=== PATIENT | male | born 1975 | race Caucasian/White ===

== ENCOUNTER 2017-09-09 14:09 | Emergency (ER) | payer OTHER ==
[~2017-09-09] VITALS: Ht 185.4 cm; Wt 96.8 kg
[~2017-09-09 14:09] MED LIST: CYCL10TA6 PO; ESCI10TA17 PO; PRLSR20 PO; PRN10125 PO
[2017-09-09 14:11] VITALS: TEMP 37; Ht 185.4 cm; Wt 96.8 kg
[2017-09-09 14:14] VITALS: O2SAT 94
[2017-09-09] MEDS ORDERED: ASPIRIN 81 MG CHEW PO STA (14:39)
[2017-09-09 14:44] LABS: BASO % 0.3 %; BASO ABS # 0.02 K/uL (0-0.2); EOS % 2.7 %; EOS ABS # 0.16 K/uL (0-0.5); HEMATOCRIT 42.3 % (42-52); HEMOGLOBIN 15.1 g/dL (14.0-18.0); IG# 0.01 K/uL (0.00-0.02); LYMPH % 20.5 %; MEAN CELL VOLUME 92.4 fL (80-100); MEAN CORPUSCULAR HGB CONC 35.7 g/dl (32-36); MEAN PLATELET VOLUME 11.4 fL (7.4-10.4); MONO ABS # 0.35 K/uL (0.11-0.59); NEUT % 70.3 %; NEUT ABS # 4.12 K/uL (1.4-6.5); PLATELET COUNT 195 K/uL (130-400); RED CELL DISTRIBUTION WIDTH CV 11.6 % (11.5-14.5); RED CELL DISTRIBUTION WIDTH SD 39.3 fL (36.4-46.3); WHITE BLOOD COUNT 5.86 K/uL (4.8-10.8)
[2017-09-09 14:54] LABS: PTT PATIENT 25.8 SECONDS (21.0-31.0)
--- NOTE | 2017-09-09 15:05 | DIAGNOSTIC IMAGING REPORT ---
CHEST ONE VIEW PORTABLE CLINICAL HISTORY: 41 years-old Male presenting with CHEST PAIN. TECHNIQUE: Portable upright AP view of the chest was obtained. COMPARISON: 07/02/2013. FINDINGS: Cardiomediastinal silhouette normal. Lungs and pleural spaces clear. Osseous structures normal. Upper abdomen normal. IMPRESSION: 1. No acute cardiopulmonary disease. Electronically signed by: Sukumar Valerio M.D. 09/09/2017 3:04 PM Dictated Date/Time: 09/09/2017 3:03 PM
[2017-09-09 15:15] LABS: ALT/SGPT 25 U/L (12-78); AST/SGOT 18 U/L (15-37); BLOOD UREA NITROGEN 16 mg/dl (7-18); CALCIUM 8.5 mg/dl (8.5-10.1); CARBON DIOXIDE 28 mmol/L (21-32); CREATININE 1.05 mg/dl (0.60-1.40); GLUCOSE 168 mg/dl (70-99); LIPASE 150 U/L (73-393); POTASSIUM 3.6 mmol/L (3.5-5.1); SODIUM 135 mmol/L (136-145)
[2017-09-09] MEDS ORDERED: LSN/10125 PO (15:17)
[2017-09-09 15:20] LABS: ALKALINE PHOSPHATASE 74 U/L (45-117); CKMB 1.1 ng/ml (0.5-3.6); TOTAL PROTEIN 7.2 gm/dl (6.4-8.2)
--- NOTE | 2017-09-09 15:49 | EMERGENCY ROOM VISIT NOTE ---
History Report prepared by George: Denise Latif Under the Supervision of: Dr. Tian Jauregui D.O. First contact with patient: 14:19 Chief Complaint: CHEST PAIN Stated Complaint: CHEST PAIN Nursing Triage Summary: pt reports chest pain across chest, started around 1330. lasted about 10 minutes and then slowly went away. denies pain currently. at the time had Lightheadedness, sweating, SOB. pt thought it was indigestion. Hx anxiety and HTN. 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 The patient states that his discomfort felt like a chest tightness that radiated from the middle of his chest to the top of his arms. He denies any shortness of breath, leg pain or swelling, abdominal pain, nausea, or vomiting. The patient took 2 Tylenol tabs, which helped relieve his symptoms. He notes that he felt normal when he woke up this morning. The patient reports that he has recently lost 15 pounds intentionally. Source of History: patient Onset: around 1330 Position: chest Quality: other (chest pain) Timing: resolved Associated Symptoms: + chest pain (that feels like chest tightness), No SOB , No nausea, No vomiting, No abdominal pain Note: The patient denies any leg swelling or pain. Review of Systems See HPI for pertinent positives & negatives. A total of 10 systems reviewed and were otherwise negative. Family History Patient reports no known family medical history. Social History Smoking Status: Never Smoker Alcohol Use: none Drug Use: none Marital Status: Housing Status: lives with family Occupation Status: employed Current/Historical Medications Scheduled Escitalopram (Lexapro), 10 MG PO DAILY Hctz/Lisinopril (Lisinopril/Hctz 10/12.5 Mg), 1 TAB PO DAILY Allergies Coded Allergies: No Known Drug Allergy (Verified Allergy, `, 07/02/13) Physical Exam Vital Signs Date Time Temp Pulse Resp B/P (MAP) Pulse Ox O2 Delivery O2 Flow Rate FiO2 09/09/17 17:43 90 18 149/97 98 09/09/17 15:46 87 18 137/72 94 Room Air 09/09/17 14:44 101 17 139/80 94 Room Air 09/09/17 14:27 98 09/09/17 14:16 98 Room Air 09/09/17 14:14 94 Room Air 09/09/17 14:11 37.0 110 20 138/111 98 Room Air Physical Exam GENERAL: Patient is awake, alert, and in no acute distress. Patient is resting comfortably and showing no signs of anxiety EYES: The conjunctivae are clear. The pupils are round and reactive. EARS, NOSE, MOUTH AND THROAT: The nose is without any evidence of any deformity. Mucous membranes are moist tongue is midline NECK: The neck is nontender and supple. RESPIRATORY: Normal respiratory effort is noted there is no evidence of wheezing rhonchi or rales CARDIOVASCULAR: Regular rate and rhythm noted there no murmurs rubs or gallops normal S1 normal S2 GASTROINTESTINAL: The abdomen is soft. Bowel sounds are present in all quadrants. Abdomen is nontender MUSCULOSKELETAL/EXTREMITIES: There is no evidence of gross deformity full range of motion is noted in the hips and shoulders SKIN: There is no obvious evidence of any rash. There are no petechiae, pallor or cyanosis noted. NEUROLOGIC: Patient is awake alert and oriented x3 Medical Decision & Procedures ER Provider Diagnostic Interpretation: Radiology results as stated below per my review and radiologist interpretation: CHEST ONE VIEW PORTABLE CLINICAL HISTORY: 41 years-old Male presenting with CHEST PAIN. TECHNIQUE: Portable upright AP view of the chest was obtained. COMPARISON: 07/02/2013. FINDINGS: Cardiomediastinal silhouette normal. Lungs and pleural spaces clear. Osseous structures normal. Upper abdomen normal. IMPRESSION: 1. No acute cardiopulmonary disease. Electronically signed by: Sukumar Valerio M.D. 09/09/2017 3:04 PM Dictated Date/Time: 09/09/2017 3:03 PM Laboratory Results 09/09/17 14:30 Red Blood Count 4.58, Mean Corpuscular Volume 92.4, Mean Corpuscular Hemoglobin 33.0, Mean Corpuscular Hemoglobin Concent 35.7, Mean Platelet Volume 11.4, Neutrophils (%) (Auto) 70.3, Lymphocytes (%) (Auto) 20.5, Monocytes (%) (Auto) 6.0, Eosinophils (%) (Auto) 2.7, Basophils (%) (Auto) 0.3, Neutrophils # (Auto) 4.12, Lymphocytes # (Auto) 1.20, Monocytes # (Auto) 0.35, Eosinophils # (Auto) 0.16, Basophils # (Auto) 0.02 09/09/17 14:30 Test 09/09/17 14:30 09/09/17 16:40 White Blood Count 5.86 K/uL (4.8-10.8) Red Blood Count 4.58 M/uL (4.7-6.1) Hemoglobin 15.1 g/dL (14.0-18.0) Hematocrit 42.3 % (42-52) Mean Corpuscular Volume 92.4 fL (80-100) Mean Corpuscular Hemoglobin 33.0 pg (25-34) Mean Corpuscular Hemoglobin Concent 35.7 g/dl (32-36) Platelet Count 195 K/uL (130-400) Mean Platelet Volume 11.4 fL (7.4-10.4) Neutrophils (%) (Auto) 70.3 % Lymphocytes (%) (Auto) 20.5 % Monocytes (%) (Auto) 6.0 % Eosinophils (%) (Auto) 2.7 % Basophils (%) (Auto) 0.3 % Neutrophils # (Auto) 4.12 K/uL (1.4-6.5) Lymphocytes # (Auto) 1.20 K/uL (1.2-3.4) Monocytes # (Auto) 0.35 K/uL (0.11-0.59) Eosinophils # (Auto) 0.16 K/uL (0-0.5) Basophils # (Auto) 0.02 K/uL (0-0.2) RDW Standard Deviation 39.3 fL (36.4-46.3) RDW Coefficient of Variation 11.6 % (11.5-14.5) Immature Granulocyte % (Auto) 0.2 % Immature Granulocyte # (Auto) 0.01 K/uL (0.00-0.02) Prothrombin Time 10.2 SECONDS (9.0-12.0) Prothromb Time International Ratio 1.0 (0.9-1.1) Activated Partial Thromboplast Time 25.8 SECONDS (21.0-31.0) Partial Thromboplastin Ratio 1.0 Anion Gap 5.0 mmol/L (3-11) Est Creatinine Clear Calc Drug Dose 111.2 ml/min Estimated GFR () 100.3 Estimated GFR (Non- 86.5 BUN/Creatinine Ratio 14.9 (10-20) Calcium Level 8.5 mg/dl (8.5-10.1) Total Bilirubin 0.2 mg/dl (0.2-1) Direct Bilirubin < 0.1 mg/dl (0-0.2) Aspartate Amino Transf (AST/SGOT) 18 U/L (15-37) Alanine Aminotransferase (ALT/SGPT) 25 U/L (12-78) Alkaline Phosphatase 74 U/L (45-117) Total Creatine Kinase 150 U/L (39-308) Creatine Kinase MB 1.1 ng/ml (0.5-3.6) Creatine Kinase MB Ratio 0.7 (0-3.0) Total Protein 7.2 gm/dl (6.4-8.2) Albumin 4.0 gm/dl (3.4-5.0) Lipase 150 U/L (73-393) Troponin I < 0.015 ng/ml (0-0.045) Laboratory results per my review. Medications Administered Medications (Trade) Dose Ordered Sig/Shalini Route Start Time Stop Time Status Last Admin Dose Admin Aspirin (Aspirin Chew) 324 mg NOW STAT PO 09/09/17 14:39 09/09/17 14:40 DC 09/09/17 14:43 324 MG ECG Indication: chest pain Rate (beats per minute): 114 Rhythm: sinus tachycardia Findings: no ectopy, other (no acute ST segments abnormalities ) Change: no significant change (12/31/10) Change: Patient's electrocardiogram was interpreted by me. Patient's repeated EKG showed: normal sinus rhythm, rate of 72, no acute ST segments, decreased rate, otherwise no change from earlier tracing. ED Course 1436: The patient was evaluated in room C1. A complete history and physical examination were performed. 1439:Ordered Aspirin 324mg PO. 1630: Repeat EKG & troponin. 1733: Upon reevaluation, the patient is resting. I discussed the results and treatment plan with him. He verbalized agreement of the treatment plan. The patient was discharged home. Medical Decision Triage Nursing notes reviewed. The patient's history was concerning for chest pain. Differential diagnosis: Etiologies such as cardiac ischemia, aortic dissection, pulmonary embolism, pneumonia, pneumothorax, musculoskeletal, infections, pericarditis, myocarditis , esophageal rupture, gastrointestinal, as well as others were entertained. The patient is a 41-year-old male who presented to the emergency department for an evaluation of chest discomfort. The patient felt chest pain which was across his anterior chest. It was not related to exertion however the patient has past medical history which may give him risk factors for coronary artery disease. I discussed the patient's laboratory and radiographic studies with him. I also discussed the limitations of the emergency department workup for chest pain with them. He had serial troponin measurements that were normal. He was encouraged to rest and avoid any strenuous activity. He was also encouraged to call his primary care physician to schedule a follow-up appointment. Otherwise he was encouraged to return the emergency department immediately if symptoms change or worsen or the need arises. Medication Reconcilliation Current Medication List: was personally reviewed by me Blood Pressure Screening Patient's blood pressure: Elevated blood pressure Blood pressure disposition: Elevated BP felt to be situational Impression Primary Impression: Substernal precordial chest pain Scribe Attestation The scribe's documentation has been prepared under my direction and personally reviewed by me in its entirety. I confirm that the note above accurately reflects all work, treatment, procedures, and medical decision making performed by me. Departure Information Dispostion Home / Self-Care Referrals Chris Santana M.D. (PCP) Forms HOME CARE DOCUMENTATION FORM Patient Instructions My [facility] Additional Instructions Continue all medications as prescribed. Rest and avoid any strenuous activity. Call your family doctor to schedule a follow-up appointment. You may require further studies such as a stress test to further evaluate the cause of your chest pain. Return to the emergency department immediately if symptoms change worsening the need arises.
[2017-09-09 17:43] VITALS: BP 149/97; PULSE 90; O2SAT 98
== END 2017-09-09 17:47 | disposition home or self-care (01) ==
LOC: C.EDB 14:10 → C.EDC 17:47
DX: R07.2 Precordial pain (principal); R00.0 Tachycardia, unspecified; R03.0 Elevated blood-pressure reading, without diagnosis of hypertension; R63.4 Abnormal weight loss